=== PATIENT | male | born 1985 | race Caucasian/White ===

== ENCOUNTER 2017-06-11 22:34 | Emergency (ER) | payer MEDICAID ==
[~2017-06-11] VITALS: Ht 182.9 cm; Wt 131.5 kg
[~2017-06-11 22:34] MED LIST: ALBU90OI INH; BENADRYL25 MG PO; BENZ100A PO; Bactrim Ds Tab1 EACH PO; CEPH500 PO; CRUTCH4 USE; CYCL10 PO; HYDACE5 PO; MELO7.5 PO; MUPI1NAS; NAPR375 PO; NAPR500 PO; Norco 5-325 Ta1 EACH PO; OXYACE5T PO; OXYACE7.5T PO; PENVK250 PO; PENVK500 PO; PRODEXEL PO; Percocet 5-3251 EACH PO; Prednisone20 MG PO; RXHYDACE PO; SULTRIDS PO; Sudogest30 MG PO; Zofran Odt4 MG SL
[2017-06-11] MEDS ORDERED: Bactrim Ds Tab1 EACH PO (23:18)
[2017-06-11] MEDS ORDERED: Norco 5-325 Ta1 EACH PO (23:19)
[2017-06-12] MEDS ORDERED: NAPR500 PO (02:48)
== END 2017-06-11 23:36 | disposition home or self-care (01) ==
LOC: ER 22:34
DX: T21.02XA Burn of unspecified degree of abdominal wall, initial encounter (principal); L03.311 Cellulitis of abdominal wall; F17.210 Nicotine dependence, cigarettes, uncomplicated; Z79.2 Long term (current) use of antibiotics; Z79.899 Other long term (current) drug therapy; X08.8XXA Exposure to other specified smoke, fire and flames, initial encounter
CPT/HCPCS: 99283

== ENCOUNTER → 2017-10-28 | Outpatient (CLI) | payer OTHER ==
[2017-10-28 14:02] LABS: BASOPHILS ABSOLUTE AUTO 0.03 K/mm3 (0.00-0.23); BASOPHILS PERCENT AUTO 0 % (0-2); EOSINOPHILS ABSOLUTE AUTO 0.15 K/mm3 (0.00-0.68); EOSINOPHILS PERCENT AUTO 2 % (0-6); Hematocrit 42.1 % (37.0-53.0); Hemoglobin 13.6 g/dL (13.5-17.5); IMMATURE GRAN ABSOLUTE AUTO 0.02 K/mm3 (0.00-0.10); IMMATURE GRAN PERCENT AUTO 0 % (0-1); LYMPHOCYTES ABSOLUTE AUTO 2.21 K/mm3 (0.84-5.20); LYMPHOCYTES PERCENT AUTO 26 % (21-46); MONOCYTES PERCENT AUTO 9 % (4-13); Mean Corpuscular HGB 27.4 pg (26.0-34.0); Mean Corpuscular HGB Conc 32.3 g/dL (31.5-36.5); Mean Corpuscular Volume 85 fL (80-100); Mean Platelet Volume 9.6 fL (9.1-12.4); NEUTROPHILS ABSOLUTE AUTO 5.37 K/mm3 (1.96-9.15); NEUTROPHILS PERCENT AUTO 63 % (41-73); Platelet Count 313 K/mm3 (150-400); RDW Coefficient Variation 13.4 % (11.7-14.2); RDW Standard Deviation 41.4 fL (35.1-46.3); Red Blood Cell Count 4.97 M/mm3 (4.30-5.90); White Blood Cell Count 8.58 K/mm3 (4.00-11.30)
== END | disposition home or self-care (01) ==
LOC: LAB EV 13:58 → LAB SHORT 13:58
PROVIDERS: Physician Assistant Surgical
DX: M25.571 Pain in right ankle and joints of right foot (principal)
CPT/HCPCS: 84550; 85025

== ENCOUNTER 2018-01-30 20:59 | Emergency (ER) | payer MEDICAID ==
[~2018-01-30] VITALS: Ht 182.9 cm; Wt 142.9 kg
== END 2018-01-30 22:39 | disposition home or self-care (01) ==
LOC: ER 20:59
DX: T40.1X1A Poisoning by heroin, accidental (unintentional), initial encounter (principal); F17.210 Nicotine dependence, cigarettes, uncomplicated
CPT/HCPCS: 96374; 99284-25; J2405

== ENCOUNTER → 2021-10-28 | Outpatient (CLI) | payer OTHER ==
[2021-10-29 09:33] LABS: BASOPHILS ABSOLUTE AUTO 0.04 K/mm3 (0.00-0.23); BASOPHILS PERCENT AUTO 1 % (0-2); EOSINOPHILS ABSOLUTE AUTO 0.13 K/mm3 (0.00-0.68); EOSINOPHILS PERCENT AUTO 2 % (0-6); Hematocrit 46.2 % (37.0-53.0); IMMATURE GRAN ABSOLUTE AUTO 0.01 K/mm3 (0.00-0.10); IMMATURE GRAN PERCENT AUTO 0 % (0-1); LYMPHOCYTES ABSOLUTE AUTO 2.66 K/mm3 (0.84-5.20); LYMPHOCYTES PERCENT AUTO 32 % (21-46); MONOCYTES ABSOLUTE AUTO 0.73 K/mm3 (0.16-1.47); MONOCYTES PERCENT AUTO 9 % (4-13); Mean Corpuscular HGB 27.9 pg (26.0-34.0); Mean Corpuscular HGB Conc 32.5 g/dL (31.5-36.5); Mean Corpuscular Volume 86 fL (80-100); Mean Platelet Volume 10.3 fL (9.1-12.4); NEUTROPHILS PERCENT AUTO 57 % (41-73); Platelet Count 278 K/mm3 (150-400); RDW Coefficient Variation 12.9 % (11.7-14.2); RDW Standard Deviation 40.4 fL (35.1-46.3); Red Blood Cell Count 5.37 M/mm3 (4.30-5.90); White Blood Cell Count 8.27 K/mm3 (4.00-11.30)
[2021-10-29 10:16] LABS: Alanine Aminotransfer (ALT/SGP 40 U/L (12-78); Albumin, Blood 4.2 g/dL (3.4-5.0); Albumin/Globulin Ratio 1.3 (0.8-1.8); Alk Phos 30 U/L (50-136); Anion Gap 4 mmol/L (6-16); Aspartate Aminotrans (AST/SGOT 28 U/L (12-37); Bilirubin, Total 0.3 mg/dL (0.1-1.0); Blood Urea Nitrogen 18 mg/dL (8-24); CHOL/HDL RATIO 2.9; CO2, Blood 28 mmol/L (21-32); Calcium, Blood 9.4 mg/dL (8.5-10.1); Chloride, Blood 105 mmol/L (98-108); Cholesterol 144 mg/dL (50-200); Globulin, Blood 3.3 g/dL (2.2-4.0); Glucose, Blood 88 mg/dL (70-99); HDL Cholesterol 49 mg/dL (>39); LDL/HDL RATIO 1.7; Low Density Lipoprotein Chol 84 mg/dL (0-110); Potassium, Blood 4.2 mmol/L (3.5-5.5); Sodium, Blood 137 mmol/L (136-145); Total Protein, Blood 7.5 g/dL (6.4-8.2); Triglycerides 54 mg/dL (30-140); Very Low Density Lipoprot Chol 10 mg/dL (6-28)
[2021-10-29 10:41] LABS: Bun/Creatinine Ratio 20.2 (12.0-20.0); Creatinine, Blood 0.89 mg/dL (0.60-1.20); Glomerular Filtration Rate 115 (60-)
== END ==
LOC: LAB SHORT 16:30
PROVIDERS: Nurse Practitioner
DX: Z13.6 Encounter for screening for cardiovascular disorders (principal); F11.20 Opioid dependence, uncomplicated; R20.2 Paresthesia of skin
CPT/HCPCS: 80053; 80061; 82607; 82746; 85025

== ENCOUNTER → 2022-11-04 | Outpatient (CLI) | payer OTHER ==
[2022-11-04 19:28] LABS: BASOPHILS ABSOLUTE AUTO 0.05 K/mm3 (0.00-0.23); BASOPHILS PERCENT AUTO 1 % (0-2); EOSINOPHILS ABSOLUTE AUTO 0.16 K/mm3 (0.00-0.68); EOSINOPHILS PERCENT AUTO 2 % (0-6); Hematocrit 47.2 % (37.0-53.0); Hemoglobin 15.6 g/dL (13.5-17.5); IMMATURE GRAN ABSOLUTE AUTO 0.02 K/mm3 (0.00-0.10); IMMATURE GRAN PERCENT AUTO 0 % (0-1); LYMPHOCYTES ABSOLUTE AUTO 3.57 K/mm3 (0.84-5.20); LYMPHOCYTES PERCENT AUTO 42 % (21-46); MONOCYTES ABSOLUTE AUTO 0.75 K/mm3 (0.16-1.47); MONOCYTES PERCENT AUTO 9 % (4-13); Mean Corpuscular HGB 28.4 pg (26.0-34.0); Mean Corpuscular HGB Conc 33.1 g/dL (31.5-36.5); Mean Corpuscular Volume 86 fL (80-100); Mean Platelet Volume 10.1 fL (9.1-12.4); NEUTROPHILS ABSOLUTE AUTO 3.93 K/mm3 (1.96-9.15); NEUTROPHILS PERCENT AUTO 46 % (41-73); Platelet Count 338 K/mm3 (150-400); RDW Coefficient Variation 12.4 % (11.7-14.2); RDW Standard Deviation 38.6 fL (35.1-46.3); White Blood Cell Count 8.48 K/mm3 (4.00-11.30)
[2022-11-04 22:06] LABS: Alanine Aminotransfer (ALT/SGP 51 U/L (12-78); Albumin, Blood 4.1 g/dL (3.4-5.0); Alk Phos 28 U/L (50-136); Anion Gap 4 mmol/L (6-16); Aspartate Aminotrans (AST/SGOT 35 U/L (12-37); Bilirubin, Total 0.3 mg/dL (0.1-1.0); Blood Urea Nitrogen 24 mg/dL (8-24); Bun/Creatinine Ratio 25.3 (12.0-20.0); CHOL/HDL RATIO 3.5; CO2, Blood 27 mmol/L (21-32); Calcium, Blood 9.2 mg/dL (8.5-10.1); Chloride, Blood 108 mmol/L (98-108); Cholesterol 183 mg/dL (50-200); Creatinine, Blood 0.95 mg/dL (0.60-1.20); Glomerular Filtration Rate 106 (60-); Glucose, Blood 97 mg/dL (70-99); HDL Cholesterol 52 mg/dL (>39); Low Density Lipoprotein Chol 105 mg/dL (0-110); Potassium, Blood 3.8 mmol/L (3.5-5.5); Sodium, Blood 139 mmol/L (136-145); Total Protein, Blood 8.1 g/dL (6.4-8.2); Triglycerides 129 mg/dL (30-140); Very Low Density Lipoprot Chol 25 mg/dL (6-28)
[2022-11-06 19:08] LABS: ANTI-CENTROMERE B ANTIBODIES <0.2 AI (0.0-0.9); ANTI-DNA (DS) AB QN 2 IU/mL (0-9); ANTI-JO-1 <0.2 AI (0.0-0.9); ANTICHROMATIN ANTIBODIES <0.2 AI (0.0-0.9); ANTIRIBOSOMAL P ANTIBODIES <0.2 AI (0.0-0.9); ANTISCLERODERMA-70 ANTIBODIES <0.2 AI (0.0-0.9); RNP ANTIBODIES 0.2 AI (0.0-0.9); SJOGREN'S ANTI-SS-A <0.2 AI (0.0-0.9); SJOGREN'S ANTI-SS-B <0.2 AI (0.0-0.9); SMITH ANTIBODIES <0.2 AI (0.0-0.9); SMITH/RNP ANTIBODIES <0.2 AI (0.0-0.9)
== END ==
LOC: LAB 16:45 → LAB SHORT 16:45
PROVIDERS: Student in an Organized Health Care Education/Training Program
DX: M13.841 Other specified arthritis, right hand (principal); M13.842 Other specified arthritis, left hand; Z79.899 Other long term (current) drug therapy
CPT/HCPCS: 80053; 80061; 83516; 84443; 85025; 86200; 86225; 86235